=== PATIENT | female | born 1960 | race Caucasian/White ===

== ENCOUNTER → 2021-02-19 13:19 | Outpatient (BNVA) | payer BC, SELFPAY | PROVIDERS: Family Provider Family Medicine; PCP Family Medicine; Visit Provider Nurse Practitioner | DX: M79.673 Pain in unspecified foot (principal); B37.0 Candidal stomatitis; M20.12 Hallux valgus (acquired), left foot; M21.612 Bunion of left foot | CPT/HCPCS: 73630 ==

== ENCOUNTER 2021-08-01 08:23 | Outpatient (CLI) | payer BC, SELFPAY | END 2021-08-01 08:24 | disposition home or self-care (01) | LOC: WOUND 08:25 | PROVIDERS: Family Provider Family Medicine; PCP Family Medicine; Visit Provider Emergency Medicine | DX: L97.529 Non-pressure chronic ulcer of other part of left foot with unspecified severity (principal); F17.210 Nicotine dependence, cigarettes, uncomplicated | CPT/HCPCS: 99214; G0463 ==

== ENCOUNTER 2021-08-05 13:48 | Outpatient (CLI) | payer BC, SELFPAY | END 2021-08-05 13:49 | disposition home or self-care (01) | LOC: WOUND 13:49 | PROVIDERS: Family Provider Family Medicine; PCP Family Medicine; Visit Provider Surgery | DX: L97.529 Non-pressure chronic ulcer of other part of left foot with unspecified severity (principal); F17.210 Nicotine dependence, cigarettes, uncomplicated | CPT/HCPCS: G0463 ==

== ENCOUNTER 2021-08-11 14:28 | Outpatient (CLI) | payer BC, SELFPAY | END 2021-08-11 14:29 | disposition home or self-care (01) | LOC: WOUND 14:29 | PROVIDERS: Family Provider Family Medicine; PCP Family Medicine; Visit Provider Thoracic Surgery (Cardiothoracic Vascular Surgery) | DX: I96 Gangrene, not elsewhere classified (principal); L97.529 Non-pressure chronic ulcer of other part of left foot with unspecified severity; F17.210 Nicotine dependence, cigarettes, uncomplicated; I10 Essential (primary) hypertension; M06.9 Rheumatoid arthritis, unspecified | CPT/HCPCS: 99212 ==